=== PATIENT | female | born 1950 | race American Indian/Alaskan Native ===

== ENCOUNTER 2017-09-15 11:03 | Emergency (ER) | payer MEDICARE ==
[2017-09-15] MEDS ORDERED: ASPIRIN PO ONE (11:52)
--- NOTE | 2017-09-15 12:05 | Emergency Department Report ---
ED General Adult HPI - General Chief complaint: Chest Pain Stated complaint: CHEST PAIN Time Seen by Provider: 09/15/17 11:55 Source: patient Mode of arrival: Stretcher Limitations: No Limitations - History of Present Illness Initial comments: Mrs. Madrid is a new resident of [facility] this week. She just became a resident of this SNF on Monday. She previously lived in her apartment alone. She states that she has had chest pain every day for the last 2 years. Sided pain. She feels that smoking fumes tend to trigger this chest pain. She also concerned that she did not receive enough water with her morning meds. She also is not sleeping as well. She has mild nondescript left sided chest pain which appears to be persistent but a little worse than normal. She also stated that floor indonesian was being applied at the [facility]. She also feels that this may have triggered her chest pain. She is followed by it support specialist. However she did miss one or 2 of her last appointments. No previous history of heart attack. She does have a history of CVA, hypertension , hyperlipidemia. No history of diabetes. According to EMS, patient developed chest pain while exercising at the rehabilitation facility. SHe was given aspirin by EMS. - Related Data Home Medications Medication Instructions Recorded Confirmed Last Taken Albuterol Sulfate [Proventil Hfa] 6.7 gm IH Q6HR PRN 09/15/17 09/15/17 Unknown Amitriptyline [Elavil] 10 mg PO QHS 09/15/17 09/15/17 Unknown Ergocalciferol(Vitamin D2)(Nf) 400 unit PO DAILY 09/15/17 09/15/17 Unknown [Vitamin D (Nf)] Hydrochlorothiazide [Hctz] 12.5 mg PO QDAY 09/15/17 09/15/17 Unknown Losartan [Cozaar] 25 mg PO QDAY 09/15/17 09/15/17 Unknown Omeprazole 20 mg PO DAILY 09/15/17 09/15/17 Unknown Triamcinolone 0.5% [Kenalog 0.5% 1 applic TP BID 09/15/17 09/15/17 Unknown CREAM] Previous Rx's Medication Instructions Recorded Last Taken Type levETIRAcetam [Keppra TAB] 500 mg PO BID #60 tablet 04/10/15 Unknown Rx Allergies Allergy/AdvReac Type Severity Reaction Status Date / Time amoxicillin Allergy Bleeding Verified 12/11/14 16:11 Penicillins Allergy Unknown Verified 04/08/15 14:54 pineapple Allergy Itching Verified 12/11/14 16:11 ED Review of Systems ROS: Stated complaint: CHEST PAIN Other details as noted in HPI Comment: All other systems reviewed and negative Constitutional: denies: weakness Respiratory: denies: cough Cardiovascular: chest pain ED Past Medical Hx - Past Medical History Hx Hypertension: Yes Hx CVA: Yes (TIA) Hx Congestive Heart Failure: No Hx Diabetes: Yes Hx Renal Disease: Yes Hx Asthma: Yes Hx COPD: No Additional medical history: hypoglycemia; hemorrhoid - Surgical History Additional Surgical History: pancreatic tumor, 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, inguinal hernia - Social History Smoking Status: Never Smoker Substance Use Type: None - Medications Home Medications: Home Medications Medication Instructions Recorded Confirmed Last Taken Type levETIRAcetam [Keppra TAB] 500 mg PO BID #60 tablet 04/10/15 09/15/17 Unknown Rx Albuterol Sulfate [Proventil Hfa] 6.7 gm IH Q6HR PRN 09/15/17 09/15/17 Unknown History Amitriptyline [Elavil] 10 mg PO QHS 09/15/17 09/15/17 Unknown History Ergocalciferol(Vitamin D2)(Nf) 400 unit PO DAILY 09/15/17 09/15/17 Unknown History [Vitamin D (Nf)] Hydrochlorothiazide [Hctz] 12.5 mg PO QDAY 09/15/17 09/15/17 Unknown History Losartan [Cozaar] 25 mg PO QDAY 09/15/17 09/15/17 Unknown History Omeprazole 20 mg PO DAILY 09/15/17 09/15/17 Unknown History Triamcinolone 0.5% [Kenalog 0.5% 1 applic TP BID 09/15/17 09/15/17 Unknown History CREAM] ED Physical Exam - General Limitations: No Limitations General appearance: alert, in no apparent distress - Head Head exam: Present: atraumatic, normocephalic - Eye Eye exam: Present: normal appearance - ENT ENT exam: Present: mucous membranes moist - Neck Neck exam: Present: normal inspection. Absent: meningismus - Respiratory Respiratory exam: Present: normal lung sounds bilaterally. Absent: respiratory distress, wheezes, rales, rhonchi - Cardiovascular Cardiovascular Exam: Present: regular rate, normal rhythm, normal heart sounds. Absent: systolic murmur, diastolic murmur, rubs, gallop - GI/Abdominal GI/Abdominal exam: Present: soft, normal bowel sounds. Absent: distended, tenderness, guarding, rebound - Extremities Exam Extremities exam: Present: normal inspection - Back Exam Back exam: Present: normal inspection - Neurological Exam Neurological exam: Present: alert, oriented X3 - Psychiatric Psychiatric exam: Present: normal affect, normal mood - Skin Skin exam: Present: warm, dry, intact, normal color. Absent: rash ED Course Vital Signs 09/15/17 09/15/17 09/15/17 11:55 14:05 14:53 Temperature 98.2 F Pulse Rate 72 71 72 Respiratory 16 16 16 Rate Blood Pressure 108/59 Blood Pressure 101/44 115/52 [Right] O2 Sat by Pulse 95 99 97 Oximetry ED Medical Decision Making - Lab Data Result diagrams: 09/15/17 12:03 09/15/17 12:03 Laboratory Results - last 24 hr 09/15/17 09/15/17 09/15/17 12:03 12:03 15:10 WBC 5.9 RBC 4.36 Hgb 12.0 Hct 37.0 MCV 85 MCH 28 MCHC 33 RDW 13.5 Plt Count 213 Lymph % (Auto) 39.0 H [place] % (Auto) 9.7 H Eos % (Auto) 1.7 Baso % (Auto) 0.4 Lymph # 2.3 [place] # 0.6 Eos # 0.1 Baso # 0.0 Seg Neutrophils % 49.2 Seg Neutrophils # 2.9 Sodium 144 Potassium 3.7 Chloride 102.7 Carbon Dioxide 25 Anion Gap 20 BUN 15 Creatinine 0.7 Estimated GFR > 60 BUN/Creatinine Ratio 21 Glucose 91 Calcium 8.6 Troponin T < 0.010 < 0.010 - EKG Data -: EKG Interpreted by De EKG shows normal: sinus rhythm, axis, intervals, QRS complexes, ST-T waves Rate: normal - EKG Data EKG obtained 1204 Normal EKG Normal sinus rhythm rate of 60 normal axis, nl intervals no ST-T signs of ischemia 09/15/17 12:08 09/15/17 16:21 Second EKG obtained 1514 Sinus rhythm rate of 75 normal axis or intervals no ST elevation unchanged from prior 09/15/17 16:23 - Medical Decision Making Ms. aMdrid presents for chest pain noticed during exercise at rehabilitation facility. She clearly stated that she has chest pain every single day. Her chest pain does seem atypical for acute coronary syndrome. She did have chest pain workup while admitted in 2014. In March 2015, myocardial perfusion scan was normal without indication of ischemia. Patient has atypical chest pain with normal EKG x2 and troponin x 2. No indication of ACS. Dc'd back to rehab facility. Critical care attestation.: If time is entered above; I have spent that time in minutes in the direct care of this critically ill patient, excluding procedure time. ED Disposition Clinical Impression: Chronic chest pain Disposition: DC/TX-06 HOME UNDER HOME HLTH Is pt being admited?: No Does the pt Need Aspirin: No Condition: Good Instructions: Chest Pain (ED) Referrals: PRIMARY CARE, [Primary Care Provider] - 3-5 Days
[2017-09-15] MEDS ORDERED: TYLENOL PO ONE (12:14)
[2017-09-15 12:33] LABS: Basophils % (Auto) 0.4 % (0.0-1.8); Eosinophils # (Auto) 0.1 K/mm3 (0.0-0.4); Eosinophils % (Auto) 1.7 % (0.0-4.3); Lymphocytes # (Auto) 2.3 K/mm3 (1.2-5.4); Mean Corpuscular HGB Conc 33 % (30-34); Mean Corpuscular Hemoglobin 28 pg (28-32); Mean Corpuscular Volume 85 fl (79-97); Monocytes # (Auto) 0.6 K/mm3 (0.0-0.8); Monocytes % (Auto) 9.7 % (0.0-7.3); Platelet Count 213 K/mm3 (140-440); Red Blood Count 4.36 M/mm3 (3.65-5.03); Red Cell Distribution Width 13.5 % (13.2-15.2)
[2017-09-15 12:49] LABS: BUN/Creatinine Ratio 21; Blood Urea Nitrogen 15 mg/dL (7-17); Calcium 8.6 mg/dL (8.4-10.2); Hemolysis Index 6
[2017-09-15] MEDS ORDERED: ALUM-MAG HYDROX-SIMETH 200-200-20MG/5ML PO ONE (14:46)
[2017-09-15 14:54] VITALS: BP 115/52
== END 2017-09-15 19:57 | disposition home or self-care (01) ==
LOC: ED 11:03
DX: R07.89 Other chest pain (principal); G89.29 Other chronic pain; E11.22 Type 2 diabetes mellitus with diabetic chronic kidney disease; I12.9 Hypertensive chronic kidney disease with stage 1 through stage 4 chronic kidney disease, or unspecified chronic kidney disease; N18.9 Chronic kidney disease, unspecified; J45.909 Unspecified asthma, uncomplicated; Z86.73 Personal history of transient ischemic attack (TIA), and cerebral infarction without residual deficits; Z88.0 Allergy status to penicillin; Z88.1 Allergy status to other antibiotic agents; Z91.018 Allergy to other foods
CPT/HCPCS: 36415; 80048; 84484; 85025; 93005; 93010; 99284

== ENCOUNTER 2017-10-05 09:04 | Outpatient (CLI) | payer MEDICARE ==
--- NOTE | 2017-10-05 10:16 | Cat Scan Report ---
CT HEAD WITHOUT CONTRAST: HISTORY: Seizure. TECHNIQUE: Sequential 2.5mm CT images. COMPARISON: none. FINDINGS: Cerebral Parenchyma: Within normal limits. Cerebellum: Within normal limits. Brainstem: Within normal limits. Ventricles: Normal. Sella: Normal. Extra-axial spaces: Normal. Basal Cisterns: Normal. Intracranial Hemorrhage: None. Midline Shift: None. Calvarium: Normal. Sinuses: Normal. Mastoid Air Cells: Normal. Visualized Orbits: Normal. IMPRESSION: Cranial CT scan within normal limits.
== END 2017-10-05 09:05 | disposition home or self-care (01) ==
LOC: CT 09:04
PROVIDERS: ATTEND Internal Medicine
DX: F44.5 Conversion disorder with seizures or convulsions (principal); G43.909 Migraine, unspecified, not intractable, without status migrainosus; I10 Essential (primary) hypertension; J45.909 Unspecified asthma, uncomplicated; Z79.899 Other long term (current) drug therapy
CPT/HCPCS: 70450

== ENCOUNTER 2018-01-26 13:04 | Emergency (ER) | payer MEDICARE ==
--- NOTE | 2018-01-26 15:17 | Emergency Department Report ---
ED General Adult HPI - General Chief complaint: Neck Pain/Injury Stated complaint: NECK PAIN/SWELLING Time Seen by Provider: 01/26/18 14:34 Source: patient Mode of arrival: Ambulatory Limitations: No Limitations - History of Present Illness Initial comments: Patient is a 67-year-old [place] female who is presenting with multiple complaints. Patient states that she has a goiter and she wants to have it removed sooner than his scheduled. Her surgery is next month. She states she wanted to have the doctors come in today to remove her goiter. Patient states that she is having some difficulty swallowing. Patient denies any nausea vomiting she states she is able to keep food and drink down but states that she feels is uncomfortable when she swallows. Patient also is complaining of chest discomfort been going on for months patient states that is secondary to cigarette smoke. Patient states when she is out and having fresh air and not in her living situation she has no chest discomfort or shortness of breath but feels discomfort [facility]. Patient states that there is been no cough congestion and fevers chills. Patient also wants she states the heart doctor to come to the emergency department to see her. Patient has an appointment for next week but does not want to wait that long. - Related Data Home Medications Medication Instructions Recorded Confirmed Last Taken Albuterol Sulfate [Proventil Hfa] 6.7 gm IH Q6HR PRN 09/15/17 09/15/17 Unknown Amitriptyline [Elavil] 10 mg PO QHS 09/15/17 09/15/17 Unknown Ergocalciferol(Vitamin D2)(Nf) 400 unit PO DAILY 09/15/17 09/15/17 Unknown [Vitamin D (Nf)] Hydrochlorothiazide [Hctz] 12.5 mg PO QDAY 09/15/17 09/15/17 Unknown Losartan [Cozaar] 25 mg PO QDAY 09/15/17 09/15/17 Unknown Omeprazole 20 mg PO DAILY 09/15/17 09/15/17 Unknown Triamcinolone 0.5% [Kenalog 0.5% 1 applic TP BID 09/15/17 09/15/17 Unknown CREAM] Previous Rx's Medication Instructions Recorded Last Taken Type levETIRAcetam [Keppra TAB] 500 mg PO BID #60 tablet 04/10/15 Unknown Rx Allergies Allergy/AdvReac Type Severity Reaction Status Date / Time amoxicillin Allergy Bleeding Verified 01/26/18 13:09 Penicillins Allergy Unknown Verified 01/26/18 13:09 pineapple Allergy Itching Verified 01/26/18 13:09 ED Review of Systems ROS: Stated complaint: NECK PAIN/SWELLING Other details as noted in HPI Comment: All other systems reviewed and negative ED Past Medical Hx - Past Medical History Hx Hypertension: Yes Hx CVA: Yes (TIA) Hx Congestive Heart Failure: No Hx Diabetes: Yes Hx Renal Disease: Yes Hx Asthma: Yes Hx COPD: No Additional medical history: hypoglycemia; hemorrhoid - Surgical History Additional Surgical History: pancreatic tumor, 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, inguinal hernia - Social History Smoking Status: Never Smoker Substance Use Type: None - Medications Home Medications: Home Medications Medication Instructions Recorded Confirmed Last Taken Type levETIRAcetam [Keppra TAB] 500 mg PO BID #60 tablet 04/10/15 09/15/17 Unknown Rx Albuterol Sulfate [Proventil Hfa] 6.7 gm IH Q6HR PRN 09/15/17 09/15/17 Unknown History Amitriptyline [Elavil] 10 mg PO QHS 09/15/17 09/15/17 Unknown History Ergocalciferol(Vitamin D2)(Nf) 400 unit PO DAILY 09/15/17 09/15/17 Unknown History [Vitamin D (Nf)] Hydrochlorothiazide [Hctz] 12.5 mg PO QDAY 09/15/17 09/15/17 Unknown History Losartan [Cozaar] 25 mg PO QDAY 09/15/17 09/15/17 Unknown History Omeprazole 20 mg PO DAILY 09/15/17 09/15/17 Unknown History Triamcinolone 0.5% [Kenalog 0.5% 1 applic TP BID 09/15/17 09/15/17 Unknown History CREAM] ED Physical Exam - General Limitations: No Limitations General appearance: alert, in no apparent distress - Head Head exam: Present: atraumatic, normocephalic - Eye Eye exam: Present: normal appearance - ENT ENT exam: Present: mucous membranes moist - Neck Neck exam: Present: normal inspection, thyromegaly - Respiratory Respiratory exam: Present: normal lung sounds bilaterally. Absent: respiratory distress - Cardiovascular Cardiovascular Exam: Present: regular rate, normal rhythm. Absent: systolic murmur, diastolic murmur, rubs, gallop - GI/Abdominal GI/Abdominal exam: Present: soft, normal bowel sounds - Extremities Exam Extremities exam: Present: normal inspection - Back Exam Back exam: Present: normal inspection - Neurological Exam Neurological exam: Present: alert, oriented X3 - Psychiatric Psychiatric exam: Present: normal affect, normal mood - Skin Skin exam: Present: warm, dry, intact, normal color. Absent: rash ED Course Vital Signs 01/26/18 13:09 Temperature 97.7 F Pulse Rate 76 Respiratory 18 Rate Blood Pressure 114/76 O2 Sat by Pulse 96 Oximetry ED Medical Decision Making - EKG Data -: EKG Interpreted by Wi - EKG Data Interpretation: other 01/26/18 15:15 EKG shows sinus rhythm at a rate of 72 no axis or intervals are no ST segment elevations or depressions as interpreted as normal EKG at 1324 - Medical Decision Making Patient is not having any current symptoms at this time. Patient's EKG is within normal limits. Patient is presenting here for secondary gains. Patient wants her doctors to move faster than they are with workups for her medical conditions. Explained to the patient that unfortunately we cannot make another physician move faster than they rescheduled. Patient be discharged home at this time. Critical care attestation.: If time is entered above; I have spent that time in minutes in the direct care of this critically ill patient, excluding procedure time. ED Disposition Clinical Impression: Chronic chest pain, Goiter Disposition: DC-01 TO HOME OR SELFCARE Is pt being admited?: No Does the pt Need Aspirin: No Condition: Stable Instructions: Chest Pain (ED) Additional Instructions: Please keep your scheduled appointments for your surgeon and motor vehicle salesperson
[2018-01-26 15:27] VITALS: BP 138/76
== END 2018-01-26 15:25 | disposition home or self-care (01) ==
LOC: ED 13:04
DX: E04.9 Nontoxic goiter, unspecified (principal); R07.9 Chest pain, unspecified; R13.10 Dysphagia, unspecified; G89.29 Other chronic pain
CPT/HCPCS: 93005; 93010; 99282

== ENCOUNTER 2018-09-20 11:56 | Emergency (ER) | payer MEDICARE ==
[2018-09-20 13:27] LABS: Basophils # (Auto) 0.1 K/mm3 (0.0-0.1); Basophils % (Auto) 0.9 % (0.0-1.8); Eosinophils # (Auto) 0.1 K/mm3 (0.0-0.4); Eosinophils % (Auto) 1.4 % (0.0-4.3); Hematocrit 40.7 % (30.3-42.9); Hemoglobin 13.4 gm/dl (10.1-14.3); Lymphocytes # (Auto) 2.6 K/mm3 (1.2-5.4); Lymphocytes % (Auto) 33.8 % (13.4-35.0); Mean Corpuscular HGB Conc 33 % (30-34); Mean Corpuscular Volume 83 fl (79-97); Monocytes # (Auto) 0.4 K/mm3 (0.0-0.8); Monocytes % (Auto) 5.7 % (0.0-7.3); Platelet Count 306 K/mm3 (140-440); Red Blood Count 4.93 M/mm3 (3.65-5.03); Red Cell Distribution Width 14.2 % (13.2-15.2)
[2018-09-20 13:38] LABS: INR 0.98 (0.87-1.13)
[2018-09-20 13:39] LABS: Partial Thromboplastin Time 32.8 Sec. (24.2-36.6)
[2018-09-20 13:51] LABS: Alanine Aminotransferase 13 units/L (7-56); Albumin 4.2 g/dL (3.9-5); BUN/Creatinine Ratio 10; Bilirubin,Direct < 0.2 mg/dL (0-0.2); Blood Urea Nitrogen 7 mg/dL (7-17); Calcium 9.5 mg/dL (8.4-10.2); Hemolysis Index 11
--- NOTE | 2018-09-20 15:17 | Cat Scan Report ---
CT NECK WITH CONTRAST INDICATION: Lymphadenopathy, neck swelling status post thyroidectomy 3 months ago. COMPARISON: None similar. FINDINGS: Neck CT performed following IV contrast. Patent airway. Thyroid surgically absent. No suspicious mass or fluid collection. Few small cervical lymph nodes incidentally noted. Patent pharynx, hypopharynx and the larynx. Preserved parapharyngeal fat pad. Streak artifact from few radiopaque dental material noted. Patent major vessels. Salivary glands appear within normal limits. Normal eye globes. Mild right maxillary sinus mucosal thickening inferiorly. Clear remainder imaged paranasal sinuses and mastoid air cells. Normal imaged intracranial appearance. Clear lung apices. Multilevel cervical spondylosis, greatest from C4-C6 with degenerative spurring and moderate to severe disc narrowing. CONCLUSION: No acute neck CT abnormality or size significant lymphadenopathy with various other findings, as above. Please correlate. Thank you for the opportunity to participate in this patient's care.
[2018-09-20 15:45] VITALS: BP 138/68
--- NOTE | 2018-09-20 17:47 | Emergency Department Report ---
ED General Adult HPI - General Chief complaint: Extremity Injury, Upper Stated complaint: NECK SWELLING/RT ARM PAIN Source: patient Mode of arrival: Ambulatory Limitations: No Limitations - History of Present Illness Initial comments: This is a 69-year-old female that has had "neck Swelling" for more than 2 weeks. She was placed on an antibiotic at [facility]. She was sent to a dentist as it was thought that she had a dental source of infection. The dentist evaluated her and found that her teeth were "okay". No infection was found. Patient returned to [facility]. She had been given a "steroid shot" prior. The nurse practitioner at the [facility] sent the patient for evaluation for persistent neck swelling. The patient also has a "rash" to both her arms. She is also noted that she has "knots" of both her arms. She states that the steroid shot was given in her leg and has nothing to do with the knots. Patient does not complain of arm swelling per se. She denies lower extremity swelling or pain. She is status post a thyroidectomy several months ago. She states/family states that no malignancy was found and that it was for goiter. The patient herself does not provide detailed information. He has a history of a seizure disorder. History of hypertension. I don't see unknown history of dementia listed. -: Gradual, week(s) Location: neck Radiation: non-radiation Severity scale (0 -10): 3 Quality: other (soreness associated with an apparent swollen gland left neck) Consistency: intermittent Improves with: none Worsens with: none Associated Symptoms: other (rash and "knots") Treatments Prior to Arrival: none - Related Data Home Medications Medication Instructions Recorded Confirmed Last Taken Albuterol Sulfate [Proventil Hfa] 6.7 gm IH Q6HR PRN 09/15/17 09/15/17 Unknown Amitriptyline [Elavil] 10 mg PO QHS 09/15/17 09/15/17 Unknown Ergocalciferol(Vitamin D2)(Nf) 400 unit PO DAILY 09/15/17 09/15/17 Unknown [Vitamin D (Nf)] Losartan [Cozaar] 25 mg PO QDAY 09/15/17 09/15/17 Unknown RX: Omeprazole 20 mg PO DAILY 09/15/17 09/15/17 Unknown Triamcinolone 0.5% [Kenalog 0.5% 1 applic TP BID 09/15/17 09/15/17 Unknown CREAM] hydroCHLOROthiazide [Hctz] 12.5 mg PO QDAY 09/15/17 09/15/17 Unknown Previous Rx's Medication Instructions Recorded Last Taken Type RX: levETIRAcetam [Keppra TAB] 500 mg PO BID #60 tablet 04/10/15 Unknown Rx RX: Prednisone [predniSONE (Cameron) 10 mg PO QDAY #5 tablet. 09/20/18 Unknown Rx ER TAB] Allergies Allergy/AdvReac Type Severity Reaction Status Date / Time amoxicillin Allergy Bleeding Verified 01/26/18 13:09 Penicillins Allergy Unknown Verified 01/26/18 13:09 pineapple Allergy Itching Verified 01/26/18 13:09 ED Review of Systems ROS: Stated complaint: NECK SWELLING/RT ARM PAIN Other details as noted in HPI Constitutional: denies: chills, fever Eyes: denies: eye pain, eye discharge, vision change ENT: as per HPI, throat pain (had a sore throat this is resolved). denies: ear pain Respiratory: denies: cough, shortness of breath, wheezing Cardiovascular: denies: chest pain, palpitations Endocrine: no symptoms reported Gastrointestinal: denies: abdominal pain, nausea, diarrhea Genitourinary: denies: urgency, dysuria, discharge Musculoskeletal: denies: back pain, joint swelling, arthralgia Skin: denies: rash, lesions Neurological: denies: headache, weakness, paresthesias Psychiatric: denies: anxiety, depression Hematological/Lymphatic: as per HPI, swollen glands. 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, inguinal hernia - Social History Smoking Status: Never Smoker Substance Use Type: None - Medications Home Medications: Home Medications Medication Instructions Recorded Confirmed Last Taken Type RX: levETIRAcetam [Keppra TAB] 500 mg PO BID #60 tablet 04/10/15 09/15/17 Unknown Rx Albuterol Sulfate [Proventil Hfa] 6.7 gm IH Q6HR PRN 09/15/17 09/15/17 Unknown History Amitriptyline [Elavil] 10 mg PO QHS 09/15/17 09/15/17 Unknown History Ergocalciferol(Vitamin D2)(Nf) 400 unit PO DAILY 09/15/17 09/15/17 Unknown History [Vitamin D (Nf)] Losartan [Cozaar] 25 mg PO QDAY 09/15/17 09/15/17 Unknown History RX: Omeprazole 20 mg PO DAILY 09/15/17 09/15/17 Unknown History Triamcinolone 0.5% [Kenalog 0.5% 1 applic TP BID 09/15/17 09/15/17 Unknown His tory CREAM] hydroCHLOROthiazide [Hctz] 12.5 mg PO QDAY 09/15/17 09/15/17 Unknown History RX: Prednisone [predniSONE (Cameron) 10 mg PO QDAY #5 tablet. 09/20/18 Unknown Rx ER TAB] ED Physical Exam - General Limitations: No Limitations General appearance: alert, in no apparent distress - Head Head exam: Present: atraumatic, normocephalic - Eye Eye exam: Present: normal appearance. Absent: scleral icterus - ENT ENT exam: Present: normal orophraynx, mucous membranes moist - Neck Neck exam: Present: normal inspection, lymphadenopathy (ears to be a anterior cervical mid chain node on the left). Absent: tenderness, meningismus - Respiratory Respiratory exam: Present: normal lung sounds bilaterally. Absent: respiratory distress - Cardiovascular Cardiovascular Exam: Present: regular rate, normal rhythm. Absent: systolic murmur, diastolic murmur, rubs, gallop - GI/Abdominal GI/Abdominal exam: Present: soft, normal bowel sounds. Absent: distended, tenderness, guarding, rebound, rigid - Extremities Exam Extremities exam: Present: normal inspection, other (there is a subcutaneous nodule of the right deltoid area) - Back Exam Back exam: Present: normal inspection - Neurological Exam Neurological exam: Present: alert, oriented X3, CN II-XII intact. Absent: motor sensory deficit - Psychiatric Psychiatric exam: Present: normal mood, flat affect - Skin Skin exam: Present: warm, dry, intact, other (there are some punctate erythematous spots which are non-petechial of both upper arms). Absent: rash ED Course Vital Signs 09/20/18 09/20/18 09/20/18 12:07 13:56 15:44 Temperature 98.4 F Pulse Rate 72 67 68 Respiratory 20 16 16 Rate Blood Pressure 121/40 Blood Pressure 112/55 138/68 [Left] O2 Sat by Pulse 99 97 97 Oximetry - Reevaluation(s) Reevaluation #1: CT of the neck showed small lymphadenopathy but otherwise was negative per radiologist. 09/20/18 17:49 Reevaluation #2: Patient was found to have a slightly elevated lactic acid level which was normal on repeat. She has a substantially elevated d-dimer. I would think the possibility of malignancy is here. I would consider the possibility of upper extremity DVT. The patient's workup at this point would be extremely prolonged and difficult for me to accomplish in the emergency department. Therefore I have asked Dr. Quinteros the steam cleaning machine operator to see the patient and decide if she meets criteria for admission. She was found to have an elevated lactic acid level, d- dimer and subcutaneous nodules/persistent lymphadenopathy. 09/20/18 17:50 ED Medical Decision Making - Lab Data Result diagrams: 09/20/18 13:13 09/20/18 13:13 Laboratory Results - last 24 hr 09/20/18 09/20/18 09/20/18 13:13 13:13 13:13 WBC 7.8 RBC 4.93 Hgb 13.4 Hct 40.7 MCV 83 MCH 27 L MCHC 33 RDW 14.2 Plt Count 306 Lymph % (Auto) 33.8 [place] % (Auto) 5.7 Eos % (Auto) 1.4 Baso % (Auto) 0.9 Lymph # 2.6 Mason # 0.4 Eos # 0.1 Baso # 0.1 Seg Neutrophils % 58.2 Seg Neutrophils # 4.5 PT 13.4 INR 0.98 APTT 32.8 D-Dimer 1095.87 H Sodium 142 Potassium 3.7 Chloride 99.0 Carbon Dioxide 29 Anion Gap 18 BUN 7 Creatinine 0.7 Estimated GFR > 60 BUN/Creatinine Ratio 10 Glucose 159 H Lactic Acid Calcium 9.5 Magnesium 2.00 Total Bilirubin 0.70 Direct Bilirubin < 0.2 AST 14 ALT 13 Alkaline Phosphatase 134 H Total Protein 7.6 Albumin 4.2 Albumin/Globulin Ratio 1.2 09/20/18 09/20/18 13:13 15:12 WBC RBC Hgb Hct MCV MCH MCHC RDW Plt Count Lymph % (Auto) Mason % (Auto) Eos % (Auto) Baso % (Auto) Lymph # Mason # Eos # Baso # Seg Neutrophils % Seg Neutrophils # PT INR APTT D-Dimer Sodium Potassium Chloride Carbon Dioxide Anion Gap BUN Creatinine Estimated GFR BUN/Creatinine Ratio Glucose Lactic Acid 2.40 H* 1.80 Calcium Magnesium Total Bilirubin Direct Bilirubin AST ALT Alkaline Phosphatase Total Protein Albumin Albumin/Globulin Ratio - Radiology Data Radiology results: report reviewed Critical care attestation.: If time is entered above; I have spent that time in minutes in the direct care of this critically ill patient, excluding procedure time. ED Disposition Clinical Impression: Neck swelling, Elevated d-dimer, Elevated lactic acid level Disposition: - TO HOME OR SELFCARE Is pt being admited?: No Does the pt Need Aspirin: No Condition: Stable Prescriptions: RX: Prednisone [predniSONE (Cameron) ER TAB] 10 mg PO QDAY #5 tablet. Referrals: PRIMARY CARE, [Primary Care Provider] - 3-5 Days
--- NOTE | 2018-09-20 18:22 | Event Note ---
Date: 09/20/18 Patient evaluated Drug rash imp Allergic reaction CT Neck negative Prednisone 10 mg po qd for 5 days
== END 2018-09-20 18:45 | disposition home or self-care (01) ==
LOC: ED 11:56
DX: R74.0 Nonspecific elevation of levels of transaminase and lactic acid dehydrogenase [LDH] (principal); R22.1 Localized swelling, mass and lump, neck; I10 Essential (primary) hypertension; E11.9 Type 2 diabetes mellitus without complications; J45.909 Unspecified asthma, uncomplicated; Z79.899 Other long term (current) drug therapy; Z88.0 Allergy status to penicillin; Z88.1 Allergy status to other antibiotic agents; Z91.018 Allergy to other foods
CPT/HCPCS: 36415; 70491; 80048; 80076; 82140; 83735; 85025; 85379; 85610; 85730; 99284; Q9967

== ENCOUNTER 2019-10-15 11:45 | Observation (INO) | payer MEDICARE ==
[2019-10-15] MEDS ORDERED: ASPIRIN 325 MG TAB PO ONE (11:59)
--- NOTE | 2019-10-15 12:00 | Event Note ---
ED Screening Note Date of service: 10/15/19 Time: 11:57 ED Screening Note: 68 y F presents with left side chest pain x this am This initial assessment/diagnostic orders/clinical plan/treatment(s) is/are subject to change based on patients health status, clinical progression and re- assessment by fellow clinical providers in the ED. Further treatment and workup at subsequent clinical providers discretion. Patient/guardian urged not to elope from the ED as their condition may be serious if not clinically assessed and managed. Initial orders include: chest pain protocol main side eval
[2019-10-15 12:30] LABS: Basophils # (Auto) 0.1 K/mm3 (0.0-0.1); Basophils % (Auto) 1.2 % (0.0-1.8); Eosinophils # (Auto) 0.1 K/mm3 (0.0-0.4); Hematocrit 39.8 % (30.3-42.9); Hemoglobin 13.4 gm/dl (10.1-14.3); Lymphocytes # (Auto) 2.5 K/mm3 (1.2-5.4); Lymphocytes % (Auto) 35.3 % (13.4-35.0); Mean Corpuscular HGB Conc 34 % (30-34); Mean Corpuscular Volume 84 fl (79-97); Monocytes # (Auto) 0.7 K/mm3 (0.0-0.8); Monocytes % (Auto) 9.5 % (0.0-7.3); Platelet Count 246 K/mm3 (140-440); Red Blood Count 4.74 M/mm3 (3.65-5.03); Red Cell Distribution Width 13.8 % (13.2-15.2)
[2019-10-15 12:43] LABS: INR 1.01 (0.87-1.13)
[2019-10-15 12:49] LABS: BUN/Creatinine Ratio 18; Blood Urea Nitrogen 9 mg/dL (7-17); Calcium 9.3 mg/dL (8.4-10.2); Hemolysis Index 64
--- NOTE | 2019-10-15 13:12 | XRay Report ---
CHEST 1 VIEW 10/15/2019 11:59 AM INDICATION / CLINICAL INFORMATION: Chest Pain. COMPARISON: One view of the chest from 04/08/2015. FINDINGS: SUPPORT DEVICES: None. HEART / MEDIASTINUM: No significant abnormality. LUNGS / PLEURA: No significant pulmonary or pleural abnormality. No pneumothorax. ADDITIONAL FINDINGS: No significant additional findings. IMPRESSION: 1. No acute abnormality of the chest. Signer Name: Charbel Fagan MD Signed: 10/15/2019 1:08 PM Workstation Name: [employer]
--- NOTE | 2019-10-15 14:23 | Emergency Department Report ---
ED Chest Pain HPI - General Chief Complaint: Chest Pain Stated Complaint: CHEST PAIN Time Seen by Provider: 10/15/19 12:29 Source: patient Mode of arrival: Ambulatory Limitations: No Limitations - History of Present Illness Initial Comments: 68-year-old -Mexican female presents to the emergency department with complaint of some midsternal to left-sided chest pain that started this morning after she took her medications and after eating. She thinks she did not drink enough fluid at this time and says the pain feels like a "gas bubble." Patient has a past medical history of asthma, TIA, diet-controlled diabetes, hypertension. She did not take anything for symptoms prior to presentation. The pain was 9 out of 10 in intensity when it first began. Her primary care physician is a Dr. Oquendo. Patient says that she sees a habitat biologist at "[facility] in [place]" but cannot remember the name of her habitat biologist. She thinks that she last had a stress test about 2 years ago. - Related Data Home Medications Medication Instructions Recorded Confirmed Last Taken Albuterol Sulfate [Proventil Hfa] 6.7 gm IH Q6HR PRN 09/15/17 09/15/17 Unknown Amitriptyline [Elavil] 10 mg PO QHS 09/15/17 09/15/17 Unknown Ergocalciferol(Vitamin D2)(Nf) 400 unit PO DAILY 09/15/17 09/15/17 Unknown [Vitamin D (Nf)] Losartan [Cozaar] 25 mg PO QDAY 09/15/17 09/15/17 Unknown Omeprazole 20 mg PO DAILY 09/15/17 09/15/17 Unknown Triamcinolone 0.5% [Kenalog 0.5% 1 applic TP BID 09/15/17 09/15/17 Unknown CREAM] hydroCHLOROthiazide [Hctz] 12.5 mg PO QDAY 09/15/17 09/15/17 Unknown Previous Rx's Medication Instructions Recorded Last Taken Type levETIRAcetam [Keppra TAB] 500 mg PO BID #60 tablet 04/10/15 Unknown Rx Prednisone [predniSONE (Cameron) ER 10 mg PO QDAY #5 tablet. 09/20/18 Unknown Rx TAB] Allergies Allergy/AdvReac Type Severity Reaction Status Date / Time amoxicillin Allergy Bleeding Verified 01/26/18 13:09 Penicillins Allergy Unknown Verified 01/26/18 13:09 pineapple Allergy Itching Verified 01/26/18 13:09 Heart Score - HEART Score History: Slightly suspicious EKG: Normal Age: > 65 Risk factors: 1-2 risk factors Troponin: < normal limit HEART Score: 3 - Critical Actions Critical Actions: 0-3 pts:0.9-1.7%risk of adverse cardiac event.Candidate for discharge ED Review of Systems ROS: Stated complaint: CHEST PAIN Other details as noted in HPI Comment: All other systems reviewed and negative Constitutional: denies: chills, fever Eyes: denies: eye pain, vision change ENT: denies: ear pain, throat pain Respiratory: denies: cough, wheezing Cardiovascular: chest pain. 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, inguinal hernia - Social History Smoking Status: Never Smoker Substance Use Type: None - Medications Home Medications: Home Medications Medication Instructions Recorded Confirmed Last Taken Type levETIRAcetam [Keppra TAB] 500 mg PO BID #60 tablet 04/10/15 09/15/17 Unknown Rx Albuterol Sulfate [Proventil Hfa] 6.7 gm IH Q6HR PRN 09/15/17 09/15/17 Unknown History Amitriptyline [Elavil] 10 mg PO QHS 09/15/17 09/15/17 Unknown History Ergocalciferol(Vitamin D2)(Nf) 400 unit PO DAILY 09/15/17 09/15/17 Unknown History [Vitamin D (Nf)] Losartan [Cozaar] 25 mg PO QDAY 09/15/17 09/15/17 Unknown History Omeprazole 20 mg PO DAILY 09/15/17 09/15/17 Unknown History Triamcinolone 0.5% [Kenalog 0.5% 1 applic TP BID 09/15/17 09/15/17 Unknown History CREAM] hydroCHLOROthiazide [Hctz] 12.5 mg PO QDAY 09/15/17 09/15/17 Unknown History Prednisone [predniSONE (Cameron) ER 10 mg PO QDAY #5 tablet. 09/20/18 Unknown Rx TAB] ED Physical Exam - General Limitations: No Limitations - Other Other exam information: GENERAL: The patient is well-developed well-nourished. HENT: Normocephalic. Atraumatic. Patient has moist mucous membranes. EYES: Extraocular motions are intact. NECK: Supple. Trachea is midline. CHEST/LUNGS: Clear to auscultation. There is no respiratory distress noted. HEART/CARDIOVASCULAR: Regular. There is no tachycardia. There is no murmur. ABDOMEN: Abdomen is soft, nontender. Patient has normal bowel sounds. There is no abdominal distention. SKIN: Skin is warm and dry. NEURO: The patient is awake, alert, and oriented. The patient is cooperative. The patient has no focal neurologic deficits. Normal speech. MUSCULOSKELETAL: There is no tenderness or deformity. There is no evidence of acute injury. ED Course Vital Signs 10/15/19 10/15/19 11:49 12:42 Temperature 97.8 F Pulse Rate 75 80 Respiratory 18 16 Rate Blood Pressure 161/76 Blood Pressure 128/65 [Left] O2 Sat by Pulse 100 96 Oximetry SHYANN score - Shyann Score Age > 65: (1) Yes Aspirin use within the Past 7 Days: (0) No 3 or more CAD Risk Factors: (0) No 2 or more Angina events in past 24 hrs: (1) Yes Known CAD with more than 50% Stenosis: (0) No Elevated Cardiac Markers: (0) No ST Deviation Greater than 0.5mm: (0) No SHYANN Score: 2 ED Medical Decision Making - Lab Data Result diagrams: 10/15/19 12:05 10/15/19 12:05 - EKG Data -: EKG Interpreted by Me EKG shows normal: sinus rhythm, axis, intervals, QRS complexes, ST-T waves Rate: normal - EKG Data When compared to previous EKG there are: no significant change Interpretation: normal EKG, unchanged when compared t (09/15/17) - Radiology Data Radiology results: image reviewed interpreted by me: Chest x-ray does not show any acute process. There are no pleural effusions, obvious pneumonia and there is no pneumothorax. - Medical Decision Making This patient presents to the emergency department with some left-sided chest pain that started earlier in the day. At first patient thought it was secondary to eating and taking her medication without drinking much water or fluid. An EKG was done that does not show any signs of ST elevation MT. Chest x-ray does not show any pneumonia, pleural effusions, focal consolidation, pneumothorax, or any other acute process. Patient's labs have been unremarkable thus far including CBC, metabolic panel and a first negative troponin. She has a moderate heart score. For this reason the patient will be admitted to the hospital for further evaluation and treatment and was accepted for admission by the hospitalist, Dr. Quinteros. - Differential Diagnosis MT, GERD, pneumonia, costochondritis Critical Care Time: No Critical care attestation.: If time is entered above; I have spent that time in minutes in the direct care of this critically ill patient, excluding procedure time. ED Disposition Clinical Impression: Acute chest pain, Ruled out for myocardial infarction Disposition: OP ADMIT IP TO THIS HOSP Is pt being admited?: Yes Condition: Fair Time of Disposition: 14:57
[2019-10-15] MEDS ORDERED: METOCLOPRAMIDE 10 MG/2 ML INJ IV PRN (23:19)
[2019-10-15] MEDS ORDERED: oxyCODONE /ACETAMINOPHEN 5-325MG TAB PO PRN (23:19)
[2019-10-15] MEDS ORDERED: HYDROmorphone 1 MG/1 ML INJ IV PRN (23:19)
[2019-10-15] MEDS ORDERED: ACETAMINOPHEN 325 MG TAB PO PRN ×2 (23:19→23:28)
[2019-10-15] MEDS ORDERED: ONDANSETRON 4 MG/2 ML INJ IV PRN ×2 (23:19→23:28)
--- NOTE | 2019-10-15 23:28 | History and Physical Report ---
History of Present Illness Date of examination: 10/15/19 Date of admission: 10/15/19 14:57 Chief complaint: Chest pain sinse AM History of present illness: 68-year-old -[place] Citizen female presents to the emergency department with complaint of some midsternal to left-sided chest pain that started this morning after she took her medications and after eating. She thinks she did not drink enough fluid at this time and says the pain feels like a "gas bubble." Patient has a past medical history of asthma, TIA, diet-controlled diabetes, hypertension. She did not take anything for symptoms prior to presentation. The pain was 9 out of 10 in intensity when it first began. Her primary care physician is a Dr. Oquendo. Patient says that she sees a hardening machine operator helper at "[facility] in [place]" but cannot remember the name of her hardening machine operator helper. She thinks that she last had a stress test about 2 years ago. 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, inguinal hernia Social History Smoking Status: Never Smoker Substance Use Type: None Medications Home Medications: Home Medications Medication Instructions Recorded Confirmed Last Taken Type levETIRAcetam [Keppra TAB] 500 mg PO BID #60 tablet 04/10/15 09/15/17 Unknown Rx Albuterol Sulfate [Proventil Hfa] 6.7 gm IH Q6HR PRN 09/15/17 09/15/17 Unknown History Amitriptyline [Elavil] 10 mg PO QHS 09/15/17 09/15/17 Unknown History Ergocalciferol(Vitamin D2)(Nf) 400 unit PO DAILY 09/15/17 09/15/17 Unknown History [Vitamin D (Nf)] Losartan [Cozaar] 25 mg PO QDAY 09/15/17 09/15/17 Unknown History Omeprazole 20 mg PO DAILY 09/15/17 09/15/17 Unknown History Triamcinolone 0.5% [Kenalog 0.5% 1 applic TP BID 09/15/17 09/15/17 Unknown Hist ory CREAM] hydroCHLOROthiazide [Hctz] 12.5 mg PO QDAY 09/15/17 09/15/17 Unknown History Prednisone [predniSONE (Cameron) ER 10 mg PO QDAY #5 tablet. 09/20/18 Unknown Rx TAB] Review of Systems ROS: Stated complaint: CHEST PAIN Other details as noted in HPI Comment: All other systems reviewed and negative Constitutional: denies: chills, fever Eyes: denies: eye pain, vision change ENT: denies: ear pain, throat pain Respiratory: denies: cough, wheezing Cardiovascular: chest pain. denies: palpitations Gastrointestinal: denies: abdominal pain, vomiting Genitourinary: denies: dysuria, discharge Musculoskeletal: denies: back pain, arthralgia Skin: denies: rash, lesions Neurological: denies: headache, weakness Medications and Allergies Allergies Allergy/AdvReac Type Severity Reaction Status Date / Time amoxicillin Allergy Bleeding Verified 01/26/18 13:09 Penicillins Allergy Unknown Verified 01/26/18 13:09 pineapple Allergy Itching Verified 01/26/18 13:09 Home Medications Medication Instructions Recorded Confirmed Last Taken Type levETIRAcetam [Keppra TAB] 500 mg PO BID #60 tablet 04/10/15 10/15/19 Unknown Rx Ergocalciferol(Vitamin D2)(Nf) 400 unit PO DAILY 09/15/17 10/15/19 Unknown History [Vitamin D (Nf)] hydroCHLOROthiazide [Hctz] 12.5 mg PO QDAY 09/15/17 10/15/19 Unknown History Aspirin 81 mg PO DAILY 10/15/19 10/15/19 Unknown History Levothyroxine 50 mcg PO DAILY 10/15/19 10/15/19 Unknown History Levothyroxine 50 mcg PO DAILY 10/15/19 10/15/19 Unknown History Oxybutynin 5 mg PO BID 10/15/19 10/15/19 Unknown History Potassium Chloride 10 meq PO DAILY 10/15/19 10/15/19 Unknown History Sertraline 100 mg PO DAILY 10/15/19 10/15/19 Unknown History Active Meds: Active Medications Acetaminophen (Tylenol) 650 mg PO Q4H PRN PRN Reason: Pain MILD(1-3)/Fever >100.5/HUERTA Aspirin (Baby Aspirin) 81 mg PO QAM BEATRIZ Cholecalciferol (Vitamin D3) 400 unit PO QDAY BEATRIZ Famotidine (Pepcid) 20 mg PO BID BEATRIZ Hydrochlorothiazide (Hctz) 12.5 mg PO QDAY [facility] Hydromorphone HCl (Dilaudid) 0.5 mg IV Q3H PRN PRN Reason: Pain , Severe (7-10) Levetiracetam (Keppra) 500 mg PO BID [facility] Metoclopramide HCl (Reglan) 10 mg IV Q6H PRN PRN Reason: Nausea And Vomiting Miscellaneous Medication (Levothyroxine) 50 mcg PO DAILY [facility] Ondansetron HCl (Zofran) 4 mg IV Q8H PRN PRN Reason: Nausea And Vomiting Oxybutynin Chloride (Ditropan) 5 mg PO BID [facility] Oxycodone/Acetaminophen (Percocet 5/325) 1 tab PO Q6H PRN PRN Reason: Pain, Moderate (4-6) Potassium Chloride (K-Dur) 10 meq PO QDAY [facility] Sertraline HCl (Zoloft) 100 mg PO QAM [facility] Sodium Chloride (Sodium Chloride Flush Syringe 10 Ml) 10 ml IV BID [facility] Sodium Chloride (Sodium Chloride Flush Syringe 10 Ml) 10 ml IV PRN PRN PRN Reason: LINE FLUSH Exam - Constitutional Vitals: Temp Pulse Resp BP Pulse Ox 98.6 F 84 16 118/56 95 10/15/19 19:34 10/15/19 19:34 10/15/19 19:34 10/15/19 19:34 10/15/19 19:34 General appearance: Present: no acute distress, well-nourished - EENT Eyes: Present: PERRL ENT: hearing intact, clear oral mucosa - Neck Neck: Present: supple, normal ROM - Respiratory Respiratory effort: normal Respiratory: bilateral: CTA - Cardiovascular Heart rate: 78 Rhythm: regular Heart Sounds: Present: S1 & S2. Absent: rub, click - Extremities Extremities: no ischemia, pulses intact, pulses symmetrical, No edema Peripheral Pulses: within normal limits - Abdominal General gastrointestinal: Present: soft, non-tender, non-distended, normal bowel sounds Female genitourinary: Present: normal - Integumentary Integumentary: Present: clear, warm, dry - Musculoskeletal Musculoskeletal: gait normal, strength equal bilaterally - Psychiatric Psychiatric: appropriate mood/affect, intact judgment & insight - Neurologic Neurologic: CNII-XII intact, moves all extremities - Allied Health Allied health notes reviewed: nursing, case management VALDO score - Valdo Score Age > 65: (1) Yes Aspirin use within the Past 7 Days: (1) Yes 3 or more CAD Risk Factors: (1) Yes 2 or more Angina events in past 24 hrs: (1) Yes Known CAD with more than 50% Stenosis: (0) No Elevated Cardiac Markers: (0) No ST Deviation Greater than 0.5mm: (0) No VALDO Score: 4 Results - Labs CBC & Chem 7: 10/16/19 03:29 10/16/19 03:29 Labs: Laboratory Last Values WBC 7.2 K/mm3 (4.5-11.0) 10/15/19 12:05 RBC 4.74 M/mm3 (3.65-5.03) 10/15/19 12:05 Hgb 13.4 gm/dl (10.1-14.3) 10/15/19 12:05 Hct 39.8 % (30.3-42.9) 10/15/19 12:05 MCV 84 fl (79-97) 10/15/19 12:05 MCH 28 pg (28-32) 10/15/19 12:05 MCHC 34 % (30-34) 10/15/19 12:05 RDW 13.8 % (13.2-15.2) 10/15/19 12:05 Plt Count 246 K/mm3 (140-440) 10/15/19 12:05 Lymph % (Auto) 35.3 % (13.4-35.0) H 10/15/19 12:05 [place] % (Auto) 9.5 % (0.0-7.3) H 10/15/19 12:05 Eos % (Auto) 1.0 % (0.0-4.3) 10/15/19 12:05 Baso % (Auto) 1.2 % (0.0-1.8) 10/15/19 12:05 Lymph # 2.5 K/mm3 (1.2-5.4) 10/15/19 12:05 [place] # 0.7 K/mm3 (0.0-0.8) 10/15/19 12:05 Eos # 0.1 K/mm3 (0.0-0.4) 10/15/19 12:05 Baso # 0.1 K/mm3 (0.0-0.1) 10/15/19 12:05 Seg Neutrophils % 53.0 % (40.0-70.0) 10/15/19 12:05 Seg Neutrophils # 3.8 K/mm3 (1.8-7.7) 10/15/19 12:05 PT 13.4 Sec. (12.2-14.9) 10/15/19 12:05 INR 1.01 (0.87-1.13) 10/15/19 12:05 APTT 32.0 Sec. (24.2-36.6) 10/15/19 12:05 Sodium 138 mmol/L (137-145) 10/15/19 12:05 Potassium 3.5 mmol/L (3.6-5.0) L 10/15/19 12:05 Chloride 96.6 mmol/L (98-107) L 10/15/19 12:05 Carbon Dioxide 24 mmol/L (22-30) 10/15/19 12:05 Anion Gap 21 mmol/L 10/15/19 12:05 BUN 9 mg/dL (7-17) 10/15/19 12:05 Creatinine 0.5 mg/dL (0.7-1.2) L 10/15/19 12:05 Estimated GFR > 60 ml/min 10/15/19 12:05 BUN/Creatinine Ratio 18 % 10/15/19 12:05 Glucose 83 mg/dL (65-100) 10/15/19 12:05 POC Glucose 73 (70-105) 10/15/19 12:05 Calcium 9.3 mg/dL (8.4-10.2) 10/15/19 12:05 Troponin T < 0.010 ng/mL (0.00-0.029) 10/15/19 14:38 NT-Pro-B Natriuret Pep < 5 pg/mL (0-900) 10/15/19 12:05 Short CBC 10/15/19 10/16/19 Range/Units 12:05 03:29 WBC 7.2 7.8 (4.5-11.0) K/mm3 Hgb 13.4 12.6 (10.1-14.3) gm/dl Hct 39.8 37.9 (30.3-42.9) % Plt Count 246 242 (140-440) K/mm3 BMP 10/15/19 10/16/19 12:05 03:29 Sodium 138 142 Potassium 3.5 L 3.2 L Chloride 96.6 L 97.5 L Carbon Dioxide 24 30 BUN 9 11 Creatinine 0.5 L 0.7 Glucose 83 79 Calcium 9.3 9.5 Cardiac Enzymes 10/15/19 10/15/19 10/15/19 Range/Units 12:05 14:38 23:39 Troponin T < 0.010 < 0.010 < 0.010 (0.00-0.029) ng/mL 10/16/19 Range/Units 03:32 Troponin T < 0.010 (0.00-0.029) ng/mL Liver Function 10/16/19 Range/Units 03:29 Total Bilirubin 0.50 (0.1-1.2) mg/dL AST 20 (5-40) units/L ALT 15 (7-56) units/L Alkaline Phosphatase 129 (35-129) units/L Albumin 4.2 (3.9-5) g/dL - Imaging and Cardiology EKG: report reviewed Chest x-ray: report reviewed (NAF) Assessment and Plan Advance Directives: Yes (Full code) VTE prophylaxis?: Chemical Plan of care discussed with patient/family: Yes - Patient Problems (1) Acute chest pain Current Visit: Yes Status: Acute Plan to address problem: [place] pain w/u Serialtroponins ans Lexiscan in aM GERD in differential diagnosisl (2) Hypokalemia Current Visit: No Status: Acute Plan to address problem: Suppemented (3) HTN (hypertension) Current Visit: Yes Status: Chronic Qualifiers: Hypertension type: essential hypertension Qualified Code(s): I10 - Essential (primary) hypertension Plan to address problem: COnt antihypertensives (4) OAB (overactive bladder) Current Visit: Yes Status: Chronic Plan to address problem: Cont oxybutinin (5) Seizure disorder Current Visit: Yes Status: Chronic Plan to address problem: Cont Keppra (6) Hypothyroidism (acquired) Current Visit: Yes Status: Chronic Plan to address problem: COnt synthyroid Check TSH (7) GERD (gastroesophageal reflux disease) Current Visit: Yes Status: Chronic Qualifiers: Esophagitis presence: with esophagitis Qualified Code(s): K21.0 - Gastro- esophageal reflux disease with esophagitis Plan to address problem: On Protonix (8) DVT prophylaxis Current Visit: Yes Status: Acute Plan to address problem: On Heparin and GI prophylaxis
[2019-10-16] MEDS: levETIRAcetam 500 MG TAB PO SCH ×3 (03:09→22:23)
[2019-10-16 04:58] LABS: Basophils % (Auto) 0.6 % (0.0-1.8); Eosinophils # (Auto) 0.1 K/mm3 (0.0-0.4); Eosinophils % (Auto) 1.6 % (0.0-4.3); Hematocrit 37.9 % (30.3-42.9); Hemoglobin 12.6 gm/dl (10.1-14.3); Lymphocytes # (Auto) 3.1 K/mm3 (1.2-5.4); Lymphocytes % (Auto) 39.6 % (13.4-35.0); Mean Corpuscular HGB Conc 33 % (30-34); Mean Corpuscular Volume 85 fl (79-97); Monocytes # (Auto) 0.8 K/mm3 (0.0-0.8); Monocytes % (Auto) 9.6 % (0.0-7.3); Platelet Count 242 K/mm3 (140-440); Red Blood Count 4.46 M/mm3 (3.65-5.03); Red Cell Distribution Width 13.5 % (13.2-15.2)
[2019-10-16 05:14] LABS: Alanine Aminotransferase 15 units/L (7-56); Albumin 4.2 g/dL (3.9-5); BUN/Creatinine Ratio 16; Blood Urea Nitrogen 11 mg/dL (7-17); Calcium 9.5 mg/dL (8.4-10.2); Hemolysis Index 6
[2019-10-16] MEDS: LEVOTHYROXINE 50 MCG TAB PO SCH (07:03)
[2019-10-16] MEDS ORDERED: POTASSIUM CHLORIDE ER 20 MEQ TAB PO NR (07:21)
[2019-10-16] MEDS ORDERED: REGADENOSON 0.4 MG/5 ML INJ IV ONE (07:43)
[2019-10-16] MEDS ORDERED: FAMOTIDINE 20 MG TAB PO SCH (10:00)
[2019-10-16] MEDS: OXYBUTYNIN 5 MG TAB PO SCH ×2 (10:58→22:21)
[2019-10-16] MEDS: POTASSIUM CHLORIDE ER 10 MEQ TAB PO SCH (10:58)
[2019-10-16] MEDS: ASPIRIN 81 MG TAB CHEW PO SCH (10:58)
[2019-10-16] MEDS: hydroCHLOROthiazide 12.5 MG CAP PO SCH (10:58)
[2019-10-16] MEDS: HEPARIN 5,000 UNIT/1 ML VIAL SUB-Q SCH ×2 (10:58→22:23)
[2019-10-16] MEDS: CHOLECALCIFEROL (VIT D3) 400 UNIT TAB PO SCH (10:58)
[2019-10-16] MEDS: SERTRALINE 100 MG TAB PO SCH (10:58)
[2019-10-16] MEDS: PANTOPRAZOLE 40 MG TAB PO SCH (11:07)
--- NOTE | 2019-10-16 17:15 | Discharge Summary ---
Providers - Providers Date of Admission: 10/15/19 14:57 Date of discharge: 10/17/19 Attending physician: BENITO ROBERTO Primary care physician: EXAMINING CHAIR ASSEMBLER Hospitalization Condition: Stable Hospital course: Patient is a 68-year-old -[place] woman with a history of seizure disorder, hypertension, hypothyroidism, GERD, diet controlled type 2 DM, TIA, Asthma and Arthritis who presented with chest pains (1) Acute chest pain most likely GERD related Current Visit: Yes Status: Acute Plan to address problem: [place] pain w/u Serial troponins and Lexiscan is negative GERD in differential diagnosis (2) Hypokalemia Current Visit: No Status: Acute Plan to address problem: Suppemented (3) HTN (hypertension) Current Visit: Yes Status: Chronic Qualifiers: Hypertension type: essential hypertension Qualified Code(s): I10 - Essential (primary) hypertension Plan to address problem: COnt antihypertensives (4) OAB (overactive bladder) Current Visit: Yes Status: Chronic Plan to address problem: Cont oxybutinin (5) Seizure disorder Current Visit: Yes Status: Chronic Plan to address problem: Cont Keppra (6) Hypothyroidism (acquired) Current Visit: Yes Status: acute on Chronic Plan to address problem: uncontrolled, TSH 13, increase synthroid to 75mcg/day, d/w patient to follow up with PCP, she voiced U&A (7) GERD (gastroesophageal reflux disease) Current Visit: Yes Status: Chronic Qualifiers: Esophagitis presence: with esophagitis Qualified Code(s): K21.0 - Gastro- esophageal reflux disease with esophagitis Plan to address problem: On Protonix (8) DVT prophylaxis Current Visit: Yes Status: Acute Plan to address problem: On Heparin and GI prophylaxis Patient did not leave last night as ordered due to patient wishes Disposition: DC01 TO HOME OR SELFCARE Time spent for discharge: 35 minutes Core Measure Documentation - Palliative Care Palliative Care/ Comfort Measures: Not Applicable - Core Measures Any of the following diagnoses?: none - VTE Discharge Requirements Deep Vein Thrombosis/Pulmonary Embolism Present on Admission: No Has pt received <5 days of overlap therapy or INR<2.0: No Anticoagulant overlap therapy prescribed at discharge: No Contraindication No Overlap Therapy order at DC: Not Indicated Exam - Physical Exam Narrative exam: Gen: WDWN, NAD, Awake, Alert, Orientated HEENT: NCAT, EOMI, PERRL, OP Clear Neck: supple, no adenopathy, no thyromegaly, no JVD CVS/Heart: RRR, normal S1S2, pulses present bilaterally Chest/Lungs: CTA B, Symmetrical chest expansion, good air entry bilaterally GI/Abdomen: soft, NTND, good bowel sounds, no guarding or rebound /Bladder: no suprapubic tenderness, no CVA or paraspinal tenderness Extermity/Skin: no c/c/e, no obvious rash MSK: FROM x 4 Neuro: CN 2-12 grossly intact, no new focal deficits Psych: calm - Constitutional Vitals: Temp Pulse Resp BP Pulse Ox 97.3 F L 73 18 121/59 99 10/16/19 11:59 10/16/19 11:59 10/16/19 11:59 10/16/19 11:59 10/16/19 11:59 Last Vital Signs Temp 98.5 F 10/17/19 05:36 Pulse 79 10/17/19 05:36 Resp 20 10/17/19 05:36 BP 128/59 10/17/19 05:36 Pulse Ox 95 10/17/19 05:36 Plan Activity: other (no strenous activity unless cleared by PCP) Diet: low salt, diabetic Special Instructions: record daily BP diary, record blood sugar diary (dailly) Follow up with: RORY SQUIRES MD [Staff Physician] - 7 Days Prescriptions: Levothyroxine [Synthroid] 75 mcg PO QAM #30 tablet
--- NOTE | 2019-10-16 19:37 | Treadmill Report ---
NUCLEAR STRESS TEST REFERRING PHYSICIAN: Dr. Quinteros PROTOCOL: The patient was brought to the stress lab in a postoperative state, given 10 mCi of technetium 99m at rest. The patient underwent rest imaging. The patient underwent Lexiscan stress test. At peak stress, the patient was given 26 mCi of technetium 99m. Shortly thereafter, the patient underwent stress imaging. Raw imaging reveals mild GI artifact, no significant motion artifact. SPECT images examined carefully in horizontal long axis, vertical long axis, short axis views. There is normal homogenous uptake of radioisotope in all reported segments. No evidence of significant fixed or reversible perfusion defect suggestive of prior infarction or ischemia. Gated wall motion reveals normal systolic thickening, calculated ejection fraction of 77%, no TID. CONCLUSIONS: 1. Normal myocardial perfusion scan without evidence of active ischemia or prior infarction. 2. Normal left ventricular systolic performance without evidence of transient ischemic dilatation or stress-induced segmental wall motion abnormalities. JOB# [id number] SBM/[id number]
[2019-10-17] MEDS: LEVOTHYROXINE 50 MCG TAB PO SCH (07:52)
--- NOTE | 2019-10-17 08:35 | Progress Note ---
Assessment and Plan Assessment and plan: Patient is a 68-year-old -[place] woman with a history of seizure disorder, hypertension, hypothyroidism, GERD, diet controlled type 2 DM, TIA, Asthma and Arthritis who presented with chest pains (1) Acute chest pain most likely GERD related Current Visit: Yes Status: Acute Plan to address problem: [place] pain w/u Serial troponins and Lexiscan is negative GERD in differential diagnosis (2) Hypokalemia Current Visit: No Status: Acute Plan to address problem: Suppemented (3) HTN (hypertension) Current Visit: Yes Status: Chronic Qualifiers: Hypertension type: essential hypertension Qualified Code(s): I10 - Essential (primary) hypertension Plan to address problem: COnt antihypertensives (4) OAB (overactive bladder) Current Visit: Yes Status: Chronic Plan to address problem: Cont oxybutinin (5) Seizure disorder Current Visit: Yes Status: Chronic Plan to address problem: Cont Keppra (6) Hypothyroidism (acquired) Current Visit: Yes Status: acute on Chronic Plan to address problem: uncontrolled, TSH 13, increase synthroid to 75mcg/day, d/w patient to follow up with PCP, she voiced U&A (7) GERD (gastroesophageal reflux disease) Current Visit: Yes Status: Chronic Qualifiers: Esophagitis presence: with esophagitis Qualified Code(s): K21.0 - Gastro- esophageal reflux disease with esophagitis Plan to address problem: On Protonix (8) DVT prophylaxis Current Visit: Yes Status: Acute Plan to address problem: On Heparin and GI prophylaxis History Interval history: Patient was seen and examined. Follow-up on current diagnosis of CP, which has resolved. Overnight uneventful as no events directly reported to me. Patient denies any chest pain, shortness breath, nausea/vomiting or severe headaches. Imaging, nursing note, chart, labs and old chart reviewed. Discussed with patient. Hospitalist Physical - Physical exam Narrative exam: Gen: WDWN, NAD, Awake, Alert, Orientated HEENT: NCAT, EOMI, PERRL, OP Clear Neck: supple, no adenopathy, no thyromegaly, no JVD CVS/Heart: RRR, normal S1S2, pulses present bilaterally Chest/Lungs: CTA B, Symmetrical chest expansion, good air entry bilaterally GI/Abdomen: soft, NTND, good bowel sounds, no guarding or rebound /Bladder: no suprapubic tenderness, no CVA or paraspinal tenderness Extermity/Skin: no c/c/e, no obvious rash MSK: FROM x 4 Neuro: CN 2-12 grossly intact, no new focal deficits Psych: calm - Constitutional Vitals: Temp Pulse Resp BP Pulse Ox 98.5 F 79 20 128/59 95 10/17/19 05:36 10/17/19 05:36 10/17/19 05:36 10/17/19 05:36 10/17/19 05:36 General appearance: Present: no acute distress, well-nourished SHYANN score - Shyann Score Age > 65: (1) Yes Aspirin use within the Past 7 Days: (1) Yes 3 or more CAD Risk Factors: (1) Yes 2 or more Angina events in past 24 hrs: (1) Yes Known CAD with more than 50% Stenosis: (0) No Elevated Cardiac Markers: (0) No ST Deviation Greater than 0.5mm: (0) No SHYANN Score: 4 Results - Labs CBC & Chem 7: 10/16/19 03:29 10/16/19 03:29 Labs: Laboratory Last Values WBC 7.8 K/mm3 (4.5-11.0) 10/16/19 03:29 RBC 4.46 M/mm3 (3.65-5.03) 10/16/19 03:29 Hgb 12.6 gm/dl (10.1-14.3) 10/16/19 03:29 Hct 37.9 % (30.3-42.9) 10/16/19 03:29 MCV 85 fl (79-97) 10/16/19 03:29 MCH 28 pg (28-32) 10/16/19 03:29 MCHC 33 % (30-34) 10/16/19 03:29 RDW 13.5 % (13.2-15.2) 10/16/19 03:29 Plt Count 242 K/mm3 (140-440) 10/16/19 03:29 Lymph % (Auto) 39.6 % (13.4-35.0) H 10/16/19 03:29 Frontier % (Auto) 9.6 % (0.0-7.3) H 10/16/19 03:29 Eos % (Auto) 1.6 % (0.0-4.3) 10/16/19 03:29 Baso % (Auto) 0.6 % (0.0-1.8) 10/16/19 03:29 Lymph # 3.1 K/mm3 (1.2-5.4) 10/16/19 03:29 Frontier # 0.8 K/mm3 (0.0-0.8) 10/16/19 03: Eos # 0.1 K/mm3 (0.0-0.4) 10/16/19 03:29 Baso # 0.0 K/mm3 (0.0-0.1) 10/16/19 03: Seg Neutrophils % 48.6 % (40.0-70.0) 10/16/19 03: Seg Neutrophils # 3.8 K/mm3 (1.8-7.7) 10/16/19 03:29 PT 13.4 Sec. (12.2-14.9) 10/15/19 12:05 INR 1.01 (0.87-1.13) 10/15/19 12:05 APTT 32.0 Sec. (24.2-36.6) 10/15/19 12:05 Sodium 142 mmol/L (137-145) 10/16/19 03:29 Potassium 3.2 mmol/L (3.6-5.0) L 10/16/19 03:29 Chloride 97.5 mmol/L (98-107) L 10/16/19 03:29 Carbon Dioxide 30 mmol/L (22-30) 10/16/19 03:29 Anion Gap 18 mmol/L 10/16/19 03:29 BUN 11 mg/dL (7-17) 10/16/19 03:29 Creatinine 0.7 mg/dL (0.7-1.2) 10/16/19 03:29 Estimated GFR > 60 ml/min 10/16/19 03:29 BUN/Creatinine Ratio 16 % 10/16/19 03:29 Glucose 79 mg/dL (65-100) 10/16/19 03:29 POC Glucose 73 (70-105) 10/15/19 12:05 Hemoglobin A1c 5.7 % (4-6) 10/16/19 03:29 Calcium 9.5 mg/dL (8.4-10.2) 10/16/19 03:29 Total Bilirubin 0.50 mg/dL (0.1-1.2) 10/16/19 03:29 AST 20 units/L (5-40) 10/16/19 03:29 ALT 15 units/L (7-56) 10/16/19 03:29 Alkaline Phosphatase 129 units/L (35-129) 10/16/19 03:29 Troponin T < 0.010 ng/mL (0.00-0.029) 10/16/19 11:38 NT-Pro-B Natriuret Pep < 5 pg/mL (0-900) 10/15/19 12:05 Total Protein 6.6 g/dL (6.3-8.2) 10/16/19 03:29 Albumin 4.2 g/dL (3.9-5) 10/16/19 03:29 Albumin/Globulin Ratio 1.8 % 10/16/19 03:29 TSH 13.790 mlU/mL (0.270-4.200) H 10/16/19 07:13 Active Medications - Current Medications Current Medications: Generic Name Dose Route Start Last Admin Trade Name Freq PRN Reason Stop Dose Admin Acetaminophen 650 mg 10/15/19 23:19 Tylenol PO Q4H PRN Pain MILD(1-3)/Fever >100.5/HUERTA Aspirin 81 mg 10/16/19 10:00 10/16/19 10:58 Baby Aspirin PO 81 mg QAM BEATRIZ Administration Cholecalciferol 400 unit 10/16/19 10:00 10/16/19 10:58 Vitamin D3 PO 400 unit QDAY BEATRIZ Administration Heparin Sodium (Porcine) 5,000 unit 10/16/19 10:00 10/16/19 22:23 Heparin SUB-Q 5,000 unit Q12HR BEATRIZ Administration Hydrochlorothiazide 12.5 mg 10/16/19 10:00 10/16/19 10:58 Hctz PO 12.5 mg QDAY BEATRIZ Administration Hydromorphone HCl 0.5 mg 10/15/19 23:19 Dilaudid IV Q3H PRN Pain , Severe (7-10) Levetiracetam 500 mg 10/15/19 23:45 10/16/19 22:23 Keppra PO Not Given BID [facility] Levothyroxine Sodium 50 mcg 10/16/19 06:00 10/17/19 07:52 Synthroid PO 50 mcg QDAY@0600 BEATRIZ Administration Metoclopramide HCl 10 mg 10/15/19 23:19 Reglan IV Q6H PRN Nausea And Vomiting Ondansetron HCl 4 mg 10/15/19 23:19 Zofran IV Q8H PRN Nausea And Vomiting Oxybutynin Chloride 5 mg 10/16/19 10:00 10/16/19 22:21 Ditropan PO Not Given BID BEATRIZ Oxycodone/Acetaminophen 1 tab 10/15/19 23:19 Percocet 5/325 PO Q6H PRN Pain, Moderate (4-6) Pantoprazole Sodium 40 mg 10/16/19 08:00 10/16/19 11:07 Protonix PO 40 mg QDAY BEATRIZ Administration Potassium Chloride 10 meq 10/16/19 10:00 10/16/19 10:58 K-Dur PO 10 meq QDAY BEATRIZ Administration Sertraline HCl 100 mg 10/16/19 10:00 10/16/19 10:58 Zoloft PO 100 mg QAM BEATRIZ Administration Sodium Chloride 10 ml 10/16/19 10:00 10/16/19 10:59 Sodium Chloride Flush Syringe 10 Ml IV 10 ml BID BEATRIZ Administration Sodium Chloride 10 ml 10/15/19 23:19 Sodium Chloride Flush Syringe 10 Ml IV PRN PRN LINE FLUSH
[2019-10-17] MEDS: ASPIRIN 81 MG TAB CHEW PO SCH (09:08)
[2019-10-17] MEDS: CHOLECALCIFEROL (VIT D3) 400 UNIT TAB PO SCH (09:09)
[2019-10-17] MEDS: PANTOPRAZOLE 40 MG TAB PO SCH (09:10)
[2019-10-17] MEDS: levETIRAcetam 500 MG TAB PO SCH (09:10)
[2019-10-17] MEDS: OXYBUTYNIN 5 MG TAB PO SCH (09:12)
[2019-10-17] MEDS: hydroCHLOROthiazide 12.5 MG CAP PO SCH (09:12)
[2019-10-17] MEDS: SERTRALINE 100 MG TAB PO SCH (09:12)
[2019-10-17] MEDS: POTASSIUM CHLORIDE ER 10 MEQ TAB PO SCH (09:13)
[2019-10-17] MEDS: HEPARIN 5,000 UNIT/1 ML VIAL SUB-Q SCH (09:13)
[2019-10-17 09:41] VITALS: BP 126/72
== END 2019-10-17 15:40 | disposition home or self-care (01) ==
LOC: ED 11:45 → 4A 14:57
PROVIDERS: ADMIT Internal Medicine; ATTEND Internal Medicine
DX: R07.89 Other chest pain (principal); K21.9 Gastro-esophageal reflux disease without esophagitis; E87.6 Hypokalemia; I10 Essential (primary) hypertension; N32.81 Overactive bladder; G40.909 Epilepsy, unspecified, not intractable, without status epilepticus; E03.9 Hypothyroidism, unspecified; E11.9 Type 2 diabetes mellitus without complications; J45.909 Unspecified asthma, uncomplicated; Z79.82 Long term (current) use of aspirin; Z86.73 Personal history of transient ischemic attack (TIA), and cerebral infarction without residual deficits; Z79.899 Other long term (current) drug therapy; Z88.0 Allergy status to penicillin
CPT/HCPCS: 36415; 71045; 78452; 80048; 80053; 82962; 83036; 83880; 84443; 84484; 85025; 85610; 85730; 93005; 93010; 93017; 96372; 99285; A9502; G0378; J1644; J2785

== ENCOUNTER 2020-04-03 15:14 | Emergency (ER) | payer MEDICARE ==
[2020-04-03 17:16] LABS: Basophils # (Auto) 0.1 K/mm3 (0.0-0.1); Basophils % (Auto) 0.7 % (0.0-1.8); Eosinophils # (Auto) 0.1 K/mm3 (0.0-0.4); Eosinophils % (Auto) 1.7 % (0.0-4.3); Hematocrit 36.2 % (30.3-42.9); Hemoglobin 12.3 gm/dl (10.1-14.3); Lymphocytes # (Auto) 2.9 K/mm3 (1.2-5.4); Lymphocytes % (Auto) 38.9 % (13.4-35.0); Mean Corpuscular HGB Conc 34 % (30-34); Mean Corpuscular Volume 86 fl (79-97); Monocytes # (Auto) 0.5 K/mm3 (0.0-0.8); Monocytes % (Auto) 7.1 % (0.0-7.3); Platelet Count 233 K/mm3 (140-440); Red Blood Count 4.21 M/mm3 (3.65-5.03); Red Cell Distribution Width 14.6 % (13.2-15.2)
--- NOTE | 2020-04-03 17:36 | Emergency Department Report ---
HPI - General Chief Complaint: Medical Clearance Time Seen by Provider: 04/03/20 16:40 - HPI HPI: This is a 69-year-old female presents to the emergency department with complaint of a right-sided headache after hitting her head on a car door. Patient has done this multiple times accidentally. No loss of consciousness. She denies any vision change, slurred speech, numbness or paresthesias, or any neurological deficits. She has a past medical history that includes asthma, TIA, dementia, borderline diabetes, hypertension and seizures. Patient is currently AAO x3. Per her caregiver, the patient was recently released from the hospital. The caregiver says that the patient's memory comes and goes and she has been having some frequent outbursts that are sometimes violent. However at the time of my examination the patient is calm and appropriate. She apparently has an appointment coming up this Monday with her psychiatrist and has not been taking all of her medications. 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, inguinal hernia, thyroidectomy - Social History Smoking Status: Never Smoker Substance Use Type: None - Medications Home Medications: Home Medications Medication Instructions Recorded Confirmed Last Taken Type levETIRAcetam [Keppra TAB] 500 mg PO BID #60 tablet 04/10/15 03/20/20 Unknown Rx hydroCHLOROthiazide [HCTZ] 12.5 mg PO QDAY 09/15/17 03/20/20 Unknown History Aspirin 81 mg PO DAILY 10/15/19 03/20/20 Unknown History Oxybutynin 5 mg PO BID 10/15/19 03/20/20 Unknown History Potassium Chloride 10 meq PO DAILY 10/15/19 03/20/20 Unknown History Sertraline 50 mg PO DAILY 10/15/19 03/20/20 Unknown History ED Review of Systems ROS: Stated complaint: RT SIDE OF FACE AND THROAT Other details as noted in HPI Comment: All other systems reviewed and negative Constitutional: denies: chills, fever Eyes: denies: eye pain, vision change ENT: denies: ear pain, throat pain Respiratory: denies: cough, shortness of breath Cardiovascular: denies: chest pain, palpitations Gastrointestinal: denies: abdominal pain, vomiting Genitourinary: denies: dysuria, discharge Musculoskeletal: denies: back pain, arthralgia Skin: denies: rash, lesions Neurological: headache. denies: numbness, paresthesias Physical Exam - Physical Exam Vital Signs: Vital Signs 04/03/20 15:36 Temperature 98.0 F Pulse Rate 71 Respiratory 24 Rate Blood Pressure 120/56 O2 Sat by Pulse 97 Oximetry Physical Exam: GENERAL: The patient is well-developed well-nourished. HENT: Normocephalic. Atraumatic. Patient has moist mucous membranes. EYES: Extraocular motions are intact. No nystagmus. NECK: Supple. Trachea is midline. CHEST/LUNGS: Clear to auscultation. There is no respiratory distress noted. HEART/CARDIOVASCULAR: Regular. There is no tachycardia. There is no murmur. ABDOMEN: Abdomen is soft, nontender. Patient has normal bowel sounds. SKIN: Skin is warm and dry. NEURO: The patient is awake, alert, and oriented. The patient is cooperative. The patient has no focal neurologic deficits. Normal speech. Cranial nerves II through XII grossly intact. No pronator drift. MUSCULOSKELETAL: There is no tenderness or deformity. ED Course Vital Signs 04/03/20 15:36 Temperature 98.0 F Pulse Rate 71 Respiratory 24 Rate Blood Pressure 120/56 O2 Sat by Pulse 97 Oximetry ED Medical Decision Making - Lab Data Result diagrams: 04/03/20 16:57 04/03/20 16:57 - Radiology Data Radiology results: report reviewed CT HEAD WITHOUT CONTRAST INDICATION / CLINICAL INFORMATION: head trauma, headache. TECHNIQUE: All CT scans at this location are performed using CT dose reduction for ALARA by means of automated exposure control. COMPARISON: Head CT 10/05/2017 FINDINGS: HEMORRHAGE: No evidence of intracranial hemorrhage or extra- axial fluid collection. EXTRA-AXIAL SPACES: Cortical sulci and sylvian fissures are normal in size given the patient's age of 69 years. Basilar cisterns have an unremarkable appearance. VENTRICULAR SYSTEM: The third and lateral ventricles are mildly enlarged reflecting presence of age related parenchymal volume loss. CEREBRAL PARENCHYMA: Mild periventricular and deep white matter lucency is obs erved. This is probably secondary to microvascular ischemic change. There is no indication of recent infarction. No areas of encephalomalacia are identified. MIDLINE SHIFT OR HERNIATION: There is no mass effect. CEREBELLUM / BRAINSTEM: Brainstem has an unremarkable appearance. Age related cerebellar atrophy is noted. MIDLINE STRUCTURES:Pituitary gland has an unremarkable appearance. No abnormalities are seen in the pineal region. INTRACRANIAL VESSELS:Calcified atherosclerotic plaque is present along the course of the cavernous segments of both internal carotid arteries. Similar findings are seen at the distal vertebral arteries. ORBITS: visualized portions of the orbits have an unremarkable appearance. SOFT TISSUES of HEAD: No significant abnormality. CALVARIUM: Incidental note is made of hyperostosis frontalis interna. PARANASAL SINUSES / MASTOID AIR CELLS: Paranasal sinuses are free from inflammatory mucosal disease. Mastoid air cells are normally pneumatized. IMPRESSION: 1. Mild parenchymal volume loss and microvascular ischemic change. 2. No acute intracranial abnormality. No significant interval change compared to head CT 10/05/2017. - Medical Decision Making This patient presents with the complaint of a right-sided headache after she hit her head on the car door in the past few days. On examination she does not have any focal, motor or sensory deficits and her cranial nerves are intact. CT scan of the head without contrast does not show any acute intracranial abnormality. Patient's labs show some mild hypokalemia and some hypothyroidism. The TSH level is quite elevated but the free T4 is only slightly lower than the appropriate laboratory range. Patient's vital signs been reassuring throughout her ED course including being afebrile. Despite a recorded history of dementia, the patient is currently AAO x3 to person, place, time. She is calm and appropriate and has normal decision-making capacity at the time of my examination. We did receive a phone call from the patient's trimming assembler who has concerned that the patient should not be living by herself. However, the patient does not appear to have any medical emergency or medical reason for admission at this time. As the patient does have home health care/trimming assembler, and the patient does not want to go to a assisted, I do not feel that there is any reason to keep the patient in the emergency department overnight for a case management consult. The patient has been instructed to take her medications as prescribed and utilize the trimming assembler or family for assistance with organization of the medications. She is also been instructed to return to the emergency department with any worsening of her symptoms or with any acute distress. Critical Care Time: No Critical care attestation.: If time is entered above; I have spent that time in minutes in the direct care of this critically ill patient, excluding procedure time. ED Disposition Clinical Impression: Hypothyroidism (acquired), Hypokalemia Head contusion Qualifiers: Encounter type: initial encounter Contusion of head detail: unspecified part of head Qualified Code(s): S00.93XA - Contusion of unspecified part of head, initial encounter Disposition: DC-01 TO HOME OR SELFCARE Is pt being admited?: No Condition: Stable Instructions: Hypokalemia (ED), Hypothyroidism (ED), Minor Head Injury (ED) Additional Instructions: Please follow-up with your primary care physician in the next few days. Please take your medications as prescribed. Return to the emergency department with any worsening of your symptoms or with any acute distress. Referrals: RORY SQUIRES MD [Primary Care Provider] - 2-3 Days Time of Disposition: 19:19
[2020-04-03 17:59] LABS: Blood Urea Nitrogen 10 mg/dL (7-17); Calcium 9.5 mg/dL (8.4-10.2); Hemolysis Index 11
[2020-04-03 18:09] LABS: BUN/Creatinine Ratio 14
[2020-04-03] MEDS ORDERED: POTASSIUM CHLORIDE ER 10 MEQ TAB PO ONE (18:21)
--- NOTE | 2020-04-03 18:32 | Cat Scan Report ---
CT HEAD WITHOUT CONTRAST INDICATION / CLINICAL INFORMATION: head trauma, headache. TECHNIQUE: All CT scans at this location are performed using CT dose reduction for ALARA by means of automated e xposure control. COMPARISON: Head CT 10/05/2017 FINDINGS: HEMORRHAGE: No evidence of intracranial hemorrhage or extra-axial fluid collection. EXTRA-AXIAL SPACES: Cortical sulci and sylvian fissures are normal in size given the patient's age of 69 years. Basilar cisterns have an unremarkable appearance. VENTRICULAR SYSTEM: The third and lateral ventricles are mildly enlarged reflecting presence of age r elated parenchymal volume loss. CEREBRAL PARENCHYMA: Mild periventricular and deep white matter lucency is observed. This is probably secondary to microvascular ischemic change. There is no indication of recent infarction. No areas of encephalomalacia are identified. MIDLINE SHIFT OR HERNIATION: There is no mass effect. CEREBELLUM / BRAINSTEM: Brainstem has an unremarkable appearance. Age related cerebellar atrophy is n oted. MIDLINE STRUCTURES:Pituitary gland has an unremarkable appearance. No abnormalities are seen in the p ineal region. INTRACRANIAL VESSELS:Calcified atherosclerotic plaque is present along the course of the cavernous se gments of both internal carotid arteries. Similar findings are seen at the distal vertebral arteries. ORBITS: visualized portions of the orbits have an unremarkable appearance. SOFT TISSUES of HEAD: No significant abnormality. CALVARIUM: Incidental note is made of hyperostosis frontalis interna. PARANASAL SINUSES / MASTOID AIR CELLS: Paranasal sinuses are free from inflammatory mucosal disease. Mastoid air cells are normally pneumatized. IMPRESSION: 1. Mild parenchymal volume loss and microvascular ischemic change. 2. No acute intracranial abnormality. No significant interval change compared to head CT 10/05/2017. Signer Name: Cain Hill MD Signed: 04/03/2020 6:27 PM Workstation Name: [id number]
[2020-04-03 23:36] VITALS: BP 138/81
== END 2020-04-03 23:10 | disposition home or self-care (01) ==
LOC: ED 15:14
DX: S00.93XA Contusion of unspecified part of head, initial encounter (principal); E03.9 Hypothyroidism, unspecified; E87.6 Hypokalemia; I10 Essential (primary) hypertension; E11.9 Type 2 diabetes mellitus without complications; Z86.69 Personal history of other diseases of the nervous system and sense organs; J45.909 Unspecified asthma, uncomplicated; Z86.73 Personal history of transient ischemic attack (TIA), and cerebral infarction without residual deficits; Z79.82 Long term (current) use of aspirin; Z79.899 Other long term (current) drug therapy; Z88.0 Allergy status to penicillin; Z91.018 Allergy to other foods; Z88.8 Allergy status to other drugs, medicaments and biological substances; V09.9XXA Pedestrian injured in unspecified transport accident, initial encounter; Y93.89 Activity, other specified; Y92.89 Other specified places as the place of occurrence of the external cause; Y99.8 Other external cause status
CPT/HCPCS: 36415; 70450; 80048; 84439; 84443; 85025

== ENCOUNTER 2020-10-26 15:25 | Outpatient (CLI) | payer MEDICARE ==
[2020-10-26 16:20] LABS: Basophils # (Auto) 0.1 K/mm3 (0.0-0.1); Basophils % (Auto) 0.7 % (0.0-1.8); Eosinophils # (Auto) 0.1 K/mm3 (0.0-0.4); Eosinophils % (Auto) 0.8 % (0.0-4.3); Hematocrit 39.3 % (30.3-42.9); Hemoglobin 13.4 gm/dl (10.1-14.3); Lymphocytes # (Auto) 2.5 K/mm3 (1.2-5.4); Lymphocytes % (Auto) 27.3 % (13.4-35.0); Mean Corpuscular HGB Conc 34 % (30-34); Mean Corpuscular Volume 87 fl (79-97); Monocytes # (Auto) 0.5 K/mm3 (0.0-0.8); Monocytes % (Auto) 5.2 % (0.0-7.3); Platelet Count 224 K/mm3 (140-440); Red Blood Count 4.54 M/mm3 (3.65-5.03); Red Cell Distribution Width 13.8 % (13.2-15.2)
[2020-10-26 16:38] LABS: Alanine Aminotransferase 15 units/L (7-56); Albumin 4.6 g/dL (3.9-5); Blood Urea Nitrogen 11 mg/dL (7-17); Hemolysis Index 22
[2020-10-26 16:40] LABS: BUN/Creatinine Ratio 16
== END 2020-10-26 15:26 | disposition home or self-care (01) ==
LOC: LAB 15:25
PROVIDERS: ATTEND Internal Medicine
DX: E03.9 Hypothyroidism, unspecified (principal); F03.90 Unspecified dementia, unspecified severity, without behavioral disturbance, psychotic disturbance, mood disturbance, and anxiety; D64.9 Anemia, unspecified
CPT/HCPCS: 36415; 80053; 84443; 85025